=== PATIENT | male | born 1935 | race Caucasian/White ===

== ENCOUNTER 2024-11-23 01:49 | Inpatient (IN) | payer OTHER, MEDICARE ==
[~2024-11-23] VITALS: Ht 188 cm; Wt 77.7 kg
--- NOTE | 2024-11-23 03:48 | Physician Documentation ---
History of Present Illness Chief Complaint: See Chief Complaint Stated Complaint: ABDOMINAL PAIN Time Seen by MD: 03:47 Mode of Arrival: Air Transport HPI Patient presents to the emergency room as a transfer from [facility] for concerns for elevated liver enzymes with a suspected gallbladder pathology. Antibiotics administered. Patient's pain is beginning to return which started at 4:00 p.m. today. History of hiatal hernia and takes regular antacids. Denies chest pain. Formal ultrasound at sending facility was not available Review of Systems ROS All review of systems negative except as per HPI Physical Exam Vital Signs: Temperature: 98.3, Source: Oral, Heart Rate: 92, Respiratory Rate: 15, BP: 104/64, Pulse Oximetry: 94, Weight: 77.730 Oxygen Flow Rate: 0 Physical Exam General: Patient is awake, alert, oriented x4 in no acute distress Head: Normocephalic and atraumatic. Eyes: Conjunctival normal. EOMI. PERRL. ENT: Mucous membranes moist. Neck: Supple, trachea is midline. Chest: Clear to auscultation bilaterally without rales, rhonchi, or wheezes. There is no accessory muscle use or retractions. Cardiac: RRR without murmurs, gallops, or rubs. Abd: Soft, nondistended, positive right upper quadrant tenderness to palpation Progress Results/Orders Results/Orders Vital Signs 11/23/24 11/23/24 01:53 02:15 Temp 98.3 Pulse 92 Resp 15 B/P (MAP) 104/64 Pulse Ox 94 O2 Flow Rate 0 Medical Decision Making Findings Patient presented to the emergency room as a transfer from [facility] for concerns for elevated liver enzymes in the light of concern for cholecystitis. Differentials include but are not limited to cholecystitis, choledocholithiasis, transaminitis, pancreatitis. Ultrasound ordered and we will admit for further investigation Departure Admitted to Inpatient Unit: yes, to hospitalist Impression: Primary Impression: Suspected choledocholithiasis Condition: Guarded Referrals: NO PRIMARY CARE PROVIDER (PCP) Signature Scribe Signature: No scribe Attestation: The note accurately reflects work and decisions made by me.Nathan Castro MD 11/23/24 04:04 NATHAN CASTRO MD November 23, 2024 03:48
[2024-11-23] MEDS ORDERED: morphine 2 MG/ML inj. syringe IV PRN (05:15)
[2024-11-23] MEDS ORDERED: magnesium Cl slow-release 64mg tablet PO PRN (05:15)
[2024-11-23] MEDS ORDERED: magnesium sulf-water 2g/50mL 50 ML IV PRN (05:15)
[2024-11-23] MEDS ORDERED: ondansetron/PF 4mg/2ml inj IV PRN (05:15)
[2024-11-23] MEDS ORDERED: magnesium sulf-water 4G/100mL 100 ML IV PRN (05:15)
[2024-11-23] MEDS ORDERED: potassium Cl 40MEQ/1/2NS 520ml 520 ML IV PRN (05:15)
[2024-11-23] MEDS ORDERED: mag hydrox/Alum hydrox/simeth 30ml oral suspension PO PRN (05:15)
[2024-11-23] MEDS ORDERED: magnesium hydroxide 30ml (MOM) UD suspension PO PRN (05:15)
[2024-11-23] MEDS ORDERED: acetaminophen 325mg tablet PO PRN (05:15)
[2024-11-23] MEDS ORDERED: potassium Cl 20 mEq SR tablet PO PRN ×2 (05:15)
[2024-11-23] MEDS: morphine 4 MG/ML inj SYRINge IV ONE (05:51)
[2024-11-23] MEDS: normal saline 1000ml 1,000 ML IV SCH (05:52)
[2024-11-23 06:26] LABS: BILIRUBIN,URINE SMALL (Neg); CLARITY,URINE CLEAR (Clear); COLOR,URINE YELLOW (Yellow); GLUCOSE, URINE 500 mg/dl (Neg); KETONES,URINE TRACE mg/dl (Neg); LEUKOCYTE ESTERASE ,URINE NEGATIVE (Neg); NITRITES, URINE NEGATIVE (Neg); OCCULT BLOOD,URINE NEGATIVE (Neg); PH,URINE 5.5 (4.8-8.0); PROTEIN,URINE TRACE mg/dl (Neg)
[2024-11-23 06:27] LABS: UA COLLECTION TYPE CLN CATCH MIDSTREAM
[2024-11-23 06:32] LABS: WBC,URINE 0-4 /HPF (0-4)
[2024-11-23 06:33] LABS: BACTERIA,URINE FEW /HPF (Neg); FINE GRANULAR CAST 0-3 /LPF (NEGATIVE); RBC,URINE NONE SEEN /HPF (0-2); SQUAMOUS EPITHELIAL CELL,UR NONE SEEN /LPF (FEW)
--- NOTE | 2024-11-23 06:47 | HISTORY AND PHYSICAL-Residence ---
History & Physical Providers to CC Resident Creating Document: MAY LUNA RES ~ History of Present Illness Reason for Admit\Complaint: Symptomatic cholelithiasis History of Present Illness The 89-year-old male with a history of arrhythmias, hypertension, hyperlipidemi a, renal stones-s/p lithotripsy, lung cancer-s/p chemotherapy was transferred from an outside hospital [facility] for higher level of care. He complained of abdominal pain that started 1-2 hours after he had his lunch yesterday. He has lunch was hamburger and fries. The abdominal pain was dull achy and started in the epigastric region and eventually radiated to the back. [place] nauseous but denies any vomiting, constipation or diarrhea. Denies any chest pain, palpitations, shortness of breath, dizziness, dysuria or any other complaints. States that he has dark stools due to oral iron supplementation. Denies any history of gallstones, PUD. Is on Eliquis but denies being diagnosed with in AFib or a flutter. States that he had arrhythmias in the past and so Dr. Loyd placed him on Eliquis. Lab work at the outside hospital WBC 13.7, hemoglobin 13.9, BUN 30, creatinine 1.4, total bilirubin 2, alkaline phosphatase 312, AST 153, ALT 81. 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 Abdominal ultrasound not done at the outside hospital. Takes Tylenol 500 mg p.o. daily. Past Medical History Past Medical History History of arrhythmias, hypertension, hyperlipidemia, renal stones-s/p lithotripsy, lung cancer-s/p chemotherapy Past Surgical History Surgical History Comment Lithotripsy for renal stones, coronary artery stenting about 10-15 years back, umbilical hernia repair Past Social History Social History Comment Quit smoking about 40 years back and smoked for about four years before that. Occasionally drinks alcohol. Denied abusing any other recreational drugs ROS ROS Constitutional: No fever, chills, dizziness, weakness, weight gain or loss Eyes: No pain, erythema, discharge, blurring of vision ENT: No sore throat, epistaxis, tinnitus Cardiovascular: No chest pain, chest pressure, chest discomfort, palpitations, syncope, lower extremity edema, paroxysmal nocturnal dyspnea Respiratory: No shortness of breath, cough, hemoptysis Gastrointestinal: Abdominal pain present. Normal appetite. No nausea, vomiting, diarrhea, constipation, hematemesis, bloating, melena or fresh blood Genitourinary: No frequency, urgency, nocturia, hematuria or dysuria Musculoskeletal: No arthralgias or myalgias Integumentary: No change in skin, hair, nails. No swelling, bruising, abrasions Neurologic: No headache, neck pain, numbness or tingling of the extremities, weakness Psychiatric: No delusions, depression, loss of interest in normal activity or change in sleep pattern, hallucinations, suicidal ideations Endocrine: No fatigue, weakness, polydipsia, polyuria, change in appetite, heat or cold intolerance, sweating, dry skin Hematological: No bleeding, petechiae, bruising Allergies: No asthma or urticaria Exam Vitals: Vital Signs Date Time Temp Pulse Resp B/P (MAP) Pulse Ox O2 Delivery O2 Flow Rate FiO2 11/23/24 06:14 74 18 106/74 (85) 98 0 11/23/24 01:53 98.3 General: Alert and oriented x4 HEENT: Normocephalic and atraumatic. Pupils equal round reactive to light and accommodation. Extraocular movements intact. Oral and nasal mucosa moist Neck: Trachea is in midline. No masses or JVD Chest: Bilateral normal breath sounds. No crackles, rhonchi or wheezes Cardiovascular: Irregular rhythm. Controlled rate S1-S2 normal. No rubs or murmurs Abdomen: Soft and nondistended. Tenderness in the epigastric and right upper quadrant region. Monreal's sign positive. Normoactive bowel sounds Extremities: No cyanosis, clubbing or edema Central Nervous System: No gross sensory or motor deficits. CN II to XII intact Skin: Warm and dry Advance Care Planning Advanced Care plannin - 30 Minutes Additional Plan Possible acute cholecystitis/symptomatic cholelithiasis/choledocholithiasis Pending labs here in [facility] Lab work at the outside hospital WBC 13.7, hemoglobin 13.9, total bilirubin 2, alkaline phosphatase 312, AST 153, ALT 81 Abdomen/pelvis CT done at the outside hospital showed large left hiatus hernia, distended gallbladder, no bile duct dilation, 6.5 mm nonobstructing right kidney stone, bilateral benign-appearing renal cysts, 3.7 cm infrarenal abdominal aor tic aneurysm, diverticulosis, large left inguinal hernia Pending abdominal ultrasound Started Rocephin 2 g IV daily Consult surgeon in the a.m. For CBD dilation in the abdominal ultrasound. Recommend to consider MRCP if dil ated CBD Morphine for pain Atrial fibrillation History of PCI Feels like an irregular rhythm EKG ordered Hold home medication Eliquis due to possible surgery Continue rate-controlling medication after med reconciliation Hypertension Soft blood pressures now Continue home medication after med med reconciliation as tolerated History of lung cancer-s/p chemotherapy Takes Tarceva 25 mg once daily at home She quit pharmacy for availability. Else, as patient's family to bring the medication Hyperlipidemia Lipid panel ordered Hold Lipitor in view of transaminitis DVT prophylaxis: Lovenox 40 mg subcutaneous daily. Start Eliquis 24-48 hours after surgery Diet: NPO due to possible surgery in a.m. May Luna MD Internal Medicine Resident, PGY 2 Plan reviewed with bedside team. Patient seen through remote audiovisual assessment through HIPAA compliant setup. All labs, flowsheets, and images reviewed Cumulative nonprocedural care time spent in directed patient care = 30 min Date of Service: November 23, 2024 Billing Provider: JOSE JUAN WEINBERG MD, MANOJNA RES November 23, 2024 06:47 JOSE JUAN WEINBERG MD November 23, 2024 07:16
--- NOTE | 2024-11-23 07:00 | ELECTROCARDIOGRAPH REPORT ---
[facility] Test Date: 2024-11-23 Test Time: 06:58:37 Pat Name: ALEJANDRO FISHER Department: [facility]-ER Patient ID: [facility]-[id number] Room: [place] [address] Gender: M Legal Billing Clerk: : 1935 Requested By: MAY LUNA Order Number: [id number] Reading MD: Dr. Austin Crow Measurements Intervals [place] Rate: 63 P: 0 WV: 0 QRS: 13 QRSD: 117 T: 18 QT: 443 QTc: 454 Interpretive Statements Atrial fibrillation Ventricular premature complex Incomplete right bundle branch block Low voltage, precordial leads Electronically Signed On 11-29-2024 21:45:[address] Austin Crow Please click the below link to view image of tracing.
[2024-11-23] MEDS ORDERED: ATOR10TA70 PO (07:06)
[2024-11-23] MEDS ORDERED: LISI20TA28 PO (07:06)
[2024-11-23] MEDS ORDERED: ERLO100T (07:06)
[2024-11-23] MEDS ORDERED: APIX5TAB3 PO (07:06)
[2024-11-23] MEDS ORDERED: METO-411 PO (07:06)
[2024-11-23] MEDS ORDERED: OMEP20CA16 PO (07:06)
[2024-11-23] MEDS ORDERED: TIZA4TAB11 PO (07:06)
[2024-11-23] MEDS ORDERED: CHLO25TA10 PO (07:07)
[2024-11-23 07:26] LABS: BASOPHILS % (AUTO) 0.2 % (0-1); EOSINOPHILS % (AUTO) 0 % (0-6); HEMATOCRIT 36.9 % (42.0-52.0); HEMOGLOBIN 11.9 g/dl (14.0-17.9); LYMPHOCYTES # (AUTO) 0.3 X10'3 (1.1-4.8); LYMPHOCYTES % (AUTO) 1.4 % (21-51); MEAN CORPUSCULAR HEMOGLOBIN 30.2 PG (27.0-31.0); MEAN CORPUSCULAR HGB CONC 32.3 g/dL (33.0-36.5); MEAN CORPUSCULAR VOLUME 93.5 FL (78-98); MEAN PLATELET VOLUME 8.3 FL (7.4-10.4); MONOCYTES # (AUTO) 1.3 X10'3 (0-0.9); MONOCYTES % (AUTO) 6.5 % (2-12); NEUTROPHILS # (AUTO) 18.3 X10'3 (1.8-7.7); NEUTROPHILS % (AUTO) 91.9 % (42-75); PLATELET COUNT 167 X10'3 (140-440); RED BLOOD COUNT 3.95 X10'6 (4.70-6.10); RED CELL DISTRIBUTION WIDTH 17.6 % (11.5-14.5); WHITE BLOOD COUNT 19.9 X10'3 (4.5-11.0)
[2024-11-23 07:40] LABS: APTT 32 SECONDS (22-32); INR 1.2 INR
[2024-11-23 07:47] LABS: ALANINE AMINOTRANSFERASE 491 U/L (12-78); ALBUMIN 3.1 G/DL (3.4-5.0); ALBUMIN/GLOBULIN RATIO 1.3 (1.1-1.5); ALKALINE PHOSPHATASE 315 IU/L (46-116); ANION GAP 7 (8-16); ASPARTATE AMINO TRANSFERASE 542 U/L (10-37); BLOOD UREA NITROGEN 30 MG/DL (7-18); BUN/CREATININE RATIO 17.1 (10.0-20.0); CALCIUM 8.4 MG/DL (8.5-10.1); CHLORIDE 109 MMOL/L (99-107); CREATININE 1.75 MG/DL (0.60-1.10); GLUCOSE 142 MG/DL (70-104); SODIUM 144 MMOL/L (135-145); TOTAL CARBON DIOXIDE 28.4 MMOL/L (24-32); TOTAL PROTEIN 5.5 G/DL (6.4-8.2); eCRCL 32 ML/MIN; eGFR 37 ML/MIN
[2024-11-23 07:49] LABS: PROTHROMBIN TIME 11.9 SECONDS (9.0-12.0)
[2024-11-23] MEDS: CefTRIAXone 2gm/D5W 50ml BAG 50 ML IV SCH (07:49)
[2024-11-23 07:52] LABS: HEMOGLOBIN A1C 5.6 % (4.5-6.2)
[2024-11-23 07:55] LABS: LIPASE 53 U/L (16-77); MAGNESIUM 2.1 MG/DL (1.5-2.4); PHOSPHORUS 3.6 MG/DL (2.3-4.5); PRO BRAIN NATRIURETIC PEPTIDE 4534 PG/ML (0-450)
[2024-11-23 07:58] LABS: BILIRUBIN,TOTAL 3.5 MG/DL (0.1-1.0)
[2024-11-23] MEDS: K and/or MAG REPLACEMENT MC SCH (08:00)
[2024-11-23] MEDS: morphine 2 MG/ML inj. syringe IV PRN (10:10)
--- NOTE | 2024-11-23 11:08 | RADIOLOGY REPORT ---
Technique: Real-time ultrasound imaging of the abdomen was performed with grayscale and color Doppler . Indication: CBD dilation Comparison: None Findings: Liver measures 14.1 cm. It is unremarkable in echogenicity and echotexture without focal mass. Tom l vein is normal in caliber and demonstrates normal hepatopetal flow. Gallbladder demonstrates abnormal wall thickening up to 8 mm. Pericholecystic edema. No identifiable cholelithiasis. The common bile duct measures 6 mm. No intrahepatic biliary ductal dilatation. The right kidney measures 12th cm. There is no hydronephrosis or sonographic evidence of nephrolithia sis. Right renal lower pole cystm measures 2.5 cm The visualized portion of the pancreas is unremarkable. The visualized portion of the IVC is unremarkable. Impression: 1. Abnormal thickening of the gallbladder wall with pericholecystic edema. Findings concerning for c holecystitis. Recommend HIDA scan. 2. Common bile duct diameter at 6 mm, upper limits of normal.
[2024-11-23 11:25] VITALS: BP 124/47; PULSE 69; RESP 16; TEMP 97.4; O2SAT 98
[2024-11-23 18:00] VITALS: BP 127/56; PULSE 77; RESP 18; TEMP 97.4; O2SAT 93
[2024-11-23] MEDS: enoxaparin 40mg/0.4ml syringe SQ SCH (20:26)
[2024-11-23 22:00] VITALS: BP 107/48; PULSE 74; RESP 16; TEMP 98; O2SAT 96
[2024-11-24] MEDS: piperacillin/tazo 4.5gm/100ml 100 ML IV SCH (00:02)
--- NOTE | 2024-11-24 05:31 | ELECTROCARDIOGRAPH REPORT ---
[facility] Test Date: 2024-11-24 Test Time: 03:43:03 Pat Name: ALEJANDRO FISHER Department: ORTHO/NEURO Room: ORTHO [facility] B Gender: M Lithograph Operator: : 1935 Requested By: CHAVA BACA Order Number: [id number] Reading MD: Dr. SEFERINO Garcia Measurements Intervals [place] Rate: 85 P: 0 MS: 0 QRS: -38 QRSD: 104 T: 76 QT: 370 QTc: 440 Interpretive Statements Atrial fibrillation Left axis deviation Low voltage, precordial leads Abnormal R-wave progression, late transition Nonspecific T abnormalities, lateral leads Electronically Signed On 11-25-2024 15:06:[address] SEFERINO Garcia Please click the below link to view image of tracing.
[2024-11-24 06:00] VITALS: BP 125/65; PULSE 72; RESP 16; TEMP 97.7; O2SAT 96
[2024-11-24 06:52] LABS: BASOPHILS % (AUTO) 0.3 % (0-1); EOSINOPHILS # (AUTO) 0.1 X10'3 (0-0.9); HEMATOCRIT 37.4 % (42.0-52.0); HEMOGLOBIN 12.2 g/dl (14.0-17.9); LYMPHOCYTES # (AUTO) 0.4 X10'3 (1.1-4.8); LYMPHOCYTES % (AUTO) 5.8 % (21-51); MEAN CORPUSCULAR HEMOGLOBIN 30.3 PG (27.0-31.0); MEAN CORPUSCULAR HGB CONC 32.5 g/dL (33.0-36.5); MEAN CORPUSCULAR VOLUME 93.1 FL (78-98); MEAN PLATELET VOLUME 8.8 FL (7.4-10.4); MONOCYTES # (AUTO) 0.9 X10'3 (0-0.9); MONOCYTES % (AUTO) 11.5 % (2-12); NEUTROPHILS # (AUTO) 6.2 X10'3 (1.8-7.7); NEUTROPHILS % (AUTO) 81.4 % (42-75); PLATELET COUNT 137 X10'3 (140-440); RED BLOOD COUNT 4.01 X10'6 (4.70-6.10); RED CELL DISTRIBUTION WIDTH 18.5 % (11.5-14.5); WHITE BLOOD COUNT 7.7 X10'3 (4.5-11.0)
[2024-11-24 07:03] LABS: APTT 39 SECONDS (22-32); INR 1.3 INR; PROTHROMBIN TIME 13.1 SECONDS (9.0-12.0)
[2024-11-24 07:16] LABS: ALANINE AMINOTRANSFERASE 326 U/L (12-78); ALBUMIN 2.7 G/DL (3.4-5.0); ALBUMIN/GLOBULIN RATIO 1.1 (1.1-1.5); ALKALINE PHOSPHATASE 255 IU/L (46-116); ANION GAP 8 (8-16); ASPARTATE AMINO TRANSFERASE 198 U/L (10-37); BILIRUBIN,TOTAL 3.6 MG/DL (0.1-1.0); BLOOD UREA NITROGEN 28 MG/DL (7-18); BUN/CREATININE RATIO 18.8 (10.0-20.0); CALCIUM 8.4 MG/DL (8.5-10.1); CHLORIDE 107 MMOL/L (99-107); CHOL/HDL RATIO 2.2 (0.00-4.99); CHOLESTEROL 74 MG/DL (0-200); CREATININE 1.49 MG/DL (0.60-1.10); GLUCOSE 95 MG/DL (70-104); HDL CHOLESTEROL 33 MG/DL (35-60); LDL CHOLESTEROL 25 MG/DL (50-100); MAGNESIUM 2.2 MG/DL (1.5-2.4); PHOSPHORUS 3.1 MG/DL (2.3-4.5); POTASSIUM 4.9 MMOL/L (3.5-5.1); SODIUM 141 MMOL/L (135-145); TOTAL CARBON DIOXIDE 26.5 MMOL/L (24-32); TOTAL PROTEIN 5.1 G/DL (6.4-8.2); TRIGLYCERIDES 49 MG/DL (20-135); eCRCL 38 ML/MIN; eGFR 45 ML/MIN
[2024-11-24 10:00] VITALS: BP 132/70; PULSE 84; RESP 16; TEMP 98.2; O2SAT 96
--- NOTE | 2024-11-24 13:39 | RADIOLOGY REPORT ---
PROCEDURE: MR MRCP Indication: abd pain COMPARISON: 11/22/2024 TECHNIQUE: Multiplanar multisequence images of the brain are obtained. FINDINGS: Examination degraded by motion. Gallbladder distention. Pericholecystic edema. The common bile duct is notm well characterized. CBD measures approximately 7 mm distally. There is a large hiatal hernia which contains the entirety of the stomach and a portion of the pancre as. No hydronephrosis. Bilateral renal cysts. Mesenteric edema. Aneurysmal dilatation of the abdominal aorta up to 3.8 cm. There are small l pleural effusions. S shaped curvature thoracolumbar spine. IMPRESSION: Limited examination, severely degraded by motion. Hydropic /distended gallbladder with pericholecystic edema, again concerning for cholecystitis. Recom mend HIDA scan. Large hiatal hernia with intrathoracic stomach. A portion of the pancreas also is within the mediasti num. Mesenteric edema. Aneurysmal dilatation of the abdominal aorta to 3.8 cm. Recommend vascular surgery consultation for further management. Bilateral pleural effusions.
[2024-11-24] MEDS ORDERED: ERLO25TA PO (15:48)
[2024-11-24] MEDS ORDERED: TIZA4TAB11 PO (15:56)
[2024-11-24 18:00] VITALS: BP 131/72; PULSE 91; RESP 15; TEMP 98.2; O2SAT 93
--- NOTE | 2024-11-24 19:19 | PROGRESS NOTE ---
Daily Progress Note Providers to CC ~ Antibiotic Timeout Antibiotic Ordered?: Yes Subjective Patient denies any abdominal pain nausea or vomiting; has been NPO Objective Vital Signs Date Time Temp Pulse Resp B/P (MAP) Pulse Ox O2 Delivery O2 Flow Rate FiO2 11/24/24 10:00 98.2 84 16 132/70 (90) 96 Room Air 11/23/24 10:59 2.0 Result Diagram: 11/24/24 0610 11/24/24 0610 In bed in nonacute distress HEENT normal oral mucosa no JVD Lungs with decreased bilateral entry no crackles no wheezing Normal rate and rhythm S1-S2 Abdomen is soft nontender bowel sounds are present Extremities No edema plus two pulses Awake and alert Coagulation Studies Laboratory Tests Test 11/24/24 06:10 Prothrombin Time 13.1 SECONDS (9.0-12.0) H INR International Normalized Ratio 1.3 INR Activated Partial Thromboplast Time 39 SECONDS (22-32) H Coagulation Comments Problem\Assessment\Plan Patient presented with acute onset of abdominal pain nausea and vomiting; he is admitted for acute cholecystitis and concern for possible choledocholithiasis; patient is on Zosyn; MRCP done today shows no evidence of choledocholithiasis; case was discussed with surgery who will evaluate the patient; IV fluids; pain management Bilateral pleural effusions possibly related to chronic heart failure Heart failure likely chronic; check echo Large hiatal hernia Acute kidney injury on presentation likely related to dehydration; IV fluids History of high blood pressure metoprolol lisinopril Date of Service: November 24, 2024 Billing Provider: CHAVA BACA MD Common Visit Codes: [id number] INP/OBS CARE(HIGH) CHAVA BACA MD November 24, 2024 19:19
[2024-11-24] MEDS ORDERED: tizanidine 4mg tablet PO PRN (19:20)
[2024-11-24] MEDS: lisinopril 20mg tablet PO SCH (19:51)
[2024-11-24] MEDS: TARCEVA PO SCH (20:50)
[2024-11-24] MEDS: Melatonin 3mg tablet PO ONE (21:40)
[2024-11-24 22:00] VITALS: BP 139/75; PULSE 84; RESP 18; TEMP 96.7; O2SAT 94
[2024-11-25 05:52] LABS: BASOPHILS % (AUTO) 0.5 % (0-1); EOSINOPHILS # (AUTO) 0.1 X10'3 (0-0.9); HEMOGLOBIN 12.1 g/dl (14.0-17.9); LYMPHOCYTES # (AUTO) 0.4 X10'3 (1.1-4.8); LYMPHOCYTES % (AUTO) 6.4 % (21-51); MEAN CORPUSCULAR HEMOGLOBIN 30.6 PG (27.0-31.0); MEAN CORPUSCULAR HGB CONC 32.7 g/dL (33.0-36.5); MEAN CORPUSCULAR VOLUME 93.6 FL (78-98); MEAN PLATELET VOLUME 8.8 FL (7.4-10.4); MONOCYTES # (AUTO) 0.7 X10'3 (0-0.9); MONOCYTES % (AUTO) 10.7 % (2-12); NEUTROPHILS % (AUTO) 80.4 % (42-75); PLATELET COUNT 128 X10'3 (140-440); RED BLOOD COUNT 3.96 X10'6 (4.70-6.10); RED CELL DISTRIBUTION WIDTH 17.7 % (11.5-14.5); WHITE BLOOD COUNT 6.2 X10'3 (4.5-11.0)
[2024-11-25 06:05] LABS: APTT 38 SECONDS (22-32); INR 1.2 INR; PROTHROMBIN TIME 12.5 SECONDS (9.0-12.0)
[2024-11-25 06:18] LABS: ALANINE AMINOTRANSFERASE 210 U/L (12-78); ALBUMIN 2.5 G/DL (3.4-5.0); ALKALINE PHOSPHATASE 243 IU/L (46-116); ANION GAP 9 (8-16); ASPARTATE AMINO TRANSFERASE 93 U/L (10-37); BILIRUBIN,TOTAL 2.3 MG/DL (0.1-1.0); BLOOD UREA NITROGEN 27 MG/DL (7-18); BUN/CREATININE RATIO 18.6 (10.0-20.0); CALCIUM 8.4 MG/DL (8.5-10.1); CHLORIDE 110 MMOL/L (99-107); CREATININE 1.45 MG/DL (0.60-1.10); GLUCOSE 64 MG/DL (70-104); MAGNESIUM 2.1 MG/DL (1.5-2.4); POTASSIUM 4.9 MMOL/L (3.5-5.1); SODIUM 143 MMOL/L (135-145); TOTAL CARBON DIOXIDE 24.3 MMOL/L (24-32); eCRCL 39 ML/MIN; eGFR 46 ML/MIN
[2024-11-25 06:45] VITALS: BP 131/67; PULSE 82; RESP 17; TEMP 97.3; O2SAT 95
[2024-11-25 08:00] VITALS: RESP 17; O2SAT 95
[2024-11-25] MEDS: atorvastatin 10mg tablet PO SCH (08:02)
[2024-11-25] MEDS: pantoprazole 40mg Tablet.DR PO SCH (08:03)
[2024-11-25] MEDS: chlorthalidone 25mg tablet PO SCH (08:04)
[2024-11-25] MEDS: metoprolol succinate 25mg (24-HOUR) SR. Tablet PO SCH (08:06)
[2024-11-25 10:00] VITALS: BP 125/66; PULSE 73; RESP 16; TEMP 97.4; O2SAT 94
--- NOTE | 2024-11-25 12:50 | RADIOLOGY REPORT ---
EXAM: CT Abdomen and Pelvis Without Intravenous Contrast CLINICAL INDICATION: pain TECHNIQUE: Axial computed tomography images of the abdomen and pelvis without intravenous contrast. This CT exam was performed using one or more of the following dose reduction techniques: automated exposure control, adjustment of the mA and/or kV according to patient size, and/or use of iterative r econstruction technique. CONTRAST: COMPARISON: ROUTINE ABPEL WITH(ADULT) on DOS: 11/22/24 FINDINGS: LUNG BASES: See below. PLEURAL SPACE: Bilateral pleural effusion with compressive atelectasis. MEDIASTINUM: Large esophageal hiatal hernia. ABDOMEN: LIVER: Fatty infiltration of the liver. GALLBLADDER AND BILE DUCTS: Unremarkable. No calcified stones. No ductal dilation. PANCREAS: Unremarkable. No ductal dilation. SPLEEN: Unremarkable. No splenomegaly. ADRENALS: Unremarkable. No mass. KIDNEYS AND URETERS: Right nephrolithiasis without hydronephrosis. Bilateral renal cysts. STOMACH AND BOWEL: Constipation with suggestion of fecal impaction of the rectum. Colonic divertic ulosis without acute diverticulitis. No obstruction. PELVIS: APPENDIX: No findings to suggest acute appendicitis. BLADDER: Unremarkable. No stones. REPRODUCTIVE: Unremarkable as visualized. ABDOMEN and PELVIS: INTRAPERITONEAL SPACE: Unremarkable. No free air. No significant fluid collection. BONES/JOINTS: Total right hip replacement. No acute fracture. No dislocation. SOFT TISSUES: Inguinal hernias, bilaterally, greater on the left. VASCULATURE: Scattered calcified atherosclerotic disease of aorta. No abdominal aortic aneurysm. LYMPH NODES: Unremarkable. No enlarged lymph nodes. OTHER FINDINGS: . . IMPRESSION: 1. Constipation with suggestion of fecal impaction of the rectum. 2. Large esophageal hiatal hernia. 3. Right nephrolithiasis without hydronephrosis. 4. Inguinal hernias, bilaterally, greater on the left. 5. Bilateral renal cysts. 6. Colonic diverticulosis without acute diverticulitis.
[2024-11-25] MEDS: ringers solution, lacted 1,000 ML IV SCH (13:05)
[2024-11-25] MEDS ORDERED: morphine 4 MG/ML inj SYRINge IV PRN (13:05)
[2024-11-25] MEDS ORDERED: meperidine/PF 25mg/ml syringe IV PRN ×3 (13:05)
[2024-11-25] MEDS ORDERED: enalaprilat 1.25mg/ml 2ml vial IV PRN (13:05)
[2024-11-25] MEDS ORDERED: proCHLORperazine 10 MG/2 ml inj IV PRN (13:05)
[2024-11-25] MEDS ORDERED: ondansetron/PF 4mg/2ml inj IV PRN (13:05)
--- NOTE | 2024-11-25 13:21 | ELECTROCARDIOGRAPH REPORT ---
[facility] Test Date: 2024-11-25 Test Time: 13:16:26 Pat Name: ALEJANDRO FISHER Department: [facility] 4S Patient ID: [facility]-[id number] Room: ORTHO [facility] B Gender: M Medical Or Surgical Instrument Maker: Arianna [place] : 1935 Requested By: CARMEN WELSH Order Number: [id number] Reading MD: Dr. SEFERINO Garcia Measurements Intervals [place] Rate: 81 P: 0 OR: 0 QRS: -50 QRSD: 96 T: 88 QT: 600 QTc: 697 Interpretive Statements Atrial fibrillation Left anterior fascicular block Probable anterior infarct, age indeterminate Prolonged QT interval Electronically Signed On 11-25-2024 15:06:[address] SEFERINO Garcia Please click the below link to view image of tracing.
[2024-11-25] MEDS ORDERED: BUPIVAcaine 2.5mg/ml inj 50ml vial (contains preservative) ONE (14:24)
--- NOTE | 2024-11-25 17:48 | PROGRESS NOTE ---
Daily Progress Note Providers to CC ~ Antibiotic Timeout Antibiotic Ordered?: Yes Subjective No abdominal pain nausea or vomiting Objective Vital Signs Date Time Temp Pulse Resp B/P (MAP) Pulse Ox O2 Delivery O2 Flow Rate FiO2 11/25/24 14:30 Room Air 2.0 11/25/24 10:00 97.4 73 16 125/66 (85) 94 Result Diagram: 11/25/24 0519 11/25/24 0519 In bed in nonacute distress HEENT normal oral mucosa no JVD Lungs with decreased bilateral entry no crackles no wheezing Normal rate and rhythm S1-S2 Abdomen is soft nontender bowel sounds are present Extremities No edema plus two pulses Awake and alert Coagulation Studies Laboratory Tests Test 11/25/24 05:19 Prothrombin Time 12.5 SECONDS (9.0-12.0) H INR International Normalized Ratio 1.2 INR Activated Partial Thromboplast Time 38 SECONDS (22-32) H Coagulation Comments Problem\Assessment\Plan Patient presented with acute onset of abdominal pain nausea and vomiting; he is admitted for acute cholecystitis and concern for possible choledocholithiasis; patient is on Zosyn; MRCP shows no evidence of choledocholithiasis; case was discussed with surgery who will evaluate the patient; IV fluids; pain management 11/25 awaiting surgery evaluation Bilateral pleural effusions possibly related to chronic heart failure Heart failure likely chronic; check echo Large hiatal hernia Acute kidney injury on presentation likely related to dehydration; IV fluids History of high blood pressure metoprolol lisinopril Discharge disposition likely home Date of Service: November 25, 2024 Billing Provider: CHAVA BACA MD Common Visit Codes: [id number] INP/OBS CARE(HIGH) CHAVA BACA MD November 25, 2024 17:48
[2024-11-25 18:04] VITALS: BP 144/69; PULSE 74; RESP 18; TEMP 98.6; O2SAT 97
--- NOTE | 2024-11-25 19:11 | PROGRESS NOTE ---
Progress Note ID Providers to CC ~ Progress Note Progress Note: pt seen-don in am RIMMA HANCOCK MD November 25, 2024 19:11
[2024-11-25] MEDS: diatr meglu/diatrizoate 30ml oral sol.-(3 dose) bottle PO SCH (21:00)
--- NOTE | 2024-11-25 21:52 | RADIOLOGY REPORT ---
Clinical History hiatal hernia Comparison None Technique: All CT scans at this medical facility are performed using dose modulation techniques as appropriate t o a performed exam including the following: Automated exposure control was utilized; adjustment of th e mA and/or kV according to patient size; and use of iterative reconstruction technique. All CT studies are reported to the Dose Index Registry of the [place] [employer] [employer]. Without Contrast Radiation Dose: CTDI (mGy): 16.33; DLP (mGy-cm): 681.28 ALEJANDRO FISHER, [id number] TECHNIQUE: Volumetric CT acquisition of the chest was obtained from the thoracic inlet to the upper a bdomen. Coronal and sagittal reconstructed images are provided. FINDINGS: LUNGS/AIRWAYS/PLEURA: Central airways are patent. There is small bilateral effusions with adjacent a telectasis. There is scarring left lung base and upper lobe. No focal airspace consolidation. HEART/VESSELS: No pericardial effusion. Heart is normal in size. Normal course and caliber of the aor ta. LYMPH NODES/MEDIASTINUM: No evidence of thoracic adenopathy. Visualized thyroid gland is unremarkable . Esophagus is unremarkable. UPPER ABDOMEN: There is moderate to large paraesophageal hernia. The pancreatic body and tail is par tially herniated above the diaphragm. Left renal cysts. OSSEOUS STRUCTURES/SOFT TISSUES: No acute or aggressive osseous lesions. Degenerative changes of the thoracic spine. IMPRESSION: Small bilateral effusions with adjacent atelectasis. 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 The pancreatic body and tail is partially herniated above t he diaphragm. This report was electronically signed by Archie Dugan MD on 11/25/2024 9:50:08 PM.
[2024-11-25 22:00] VITALS: BP 140/75; PULSE 74; RESP 12; TEMP 98; O2SAT 96
--- NOTE | 2024-11-25 23:32 | CARDIOLOGY REPORT ---
APPROVED REPORT EXAM: Comprehensive 2D, Doppler, and color-flow Echocardiogram. Patient Location: [facility]3 B Blood Pressure: 125/66 mmHg Heart Rate: 72-84 bpm Rhythm: Atrial Fibrillation Indications Pre-Op Assessment LV Function Abdominal Pain Hiatal Hernia Inguinal Hernia Hx of CAD Hx of ME Hx of Lung Cancer S/P Chemotherapy Hx of Renal Stones Orchestra Conductor: Herbert Loyd MD Previous echo: None available, recent office Echo at Dr. Loyd's (last 3 weeks per patient) 2D Dimensions RVDd 4.4 cm LA Diam5.0 cm RA Minor5.8 cmLVOT Diameter 2.26 (1.8-2.4cm) IVC 27.45 mmCO 3.2 L/min M-Mode Dimensions RVDd 4.71 (2.1-3.2cm) Left Atrium(MM) 5.72 (2.5-4.0cm) IVSd 1.15 (0.7-1.1cm) LVDd 4.13 (4.0-5.6cm) Aortic Root 3.46 (2.2-3.7cm) PWd 1.15 (0.7-1.1cm) Aortic Cusp Exc 2.02 (1.5-2.0cm) IVSs 1.29 cm LVDs 2.84 (2.0-3.8cm) FS (%) 33 % PWs 1.55 cm ESV(Teich) 28.4 ml LVEF(%) 61 (>50%) Aortic Valve AoV Peak Michael. 121.6 cm/s AoV VTI 22.0 cm AO Peak GR. 5.9 mmHg AO Mean GR. 3 mmHg LVOT VTI 18.25 cm LVOT Peak Michael. 92.1 cm/s PITA(VTI)/BSA 3.32 cm2/m2 PITA (VTI) 3.32 cm2 AI P 1/2 Time 452 ms Mitral Valve MV E Velocity 466.9 cm/s MV Peak Gr. 3 mmHg MV DECEL TIME 176 ms MV A Velocity 50.2 cm/s MV Mean Gr. 1 mmHg E/A Ratio 9.3 MV VMax89.9 cm/sMV VMean41.9 cm/s MVA VTI3.96 cm2MV VTI18.4 cm Tricuspid Valve TR P. Velocity 395 cm/s RAP ESTIMATE 10 mmHg TR Peak Gr. 62 mmHg RVSP 72 mmHg LEFT VENTRICLE Normal LV size and wall thickness. Mid anteroseptal and basal inferoseptal segments appear hypokineti c. Overall systolic function is normal. Overall LVEF is 55-60%. RIGHT VENTRICLE Right ventricle is moderate to severely dilated. Reduced function. RV apex appears akinetic. Estimate d PA systolic pressure is 72 mmHg. ATRIA Severe biatrial enlargement. AORTIC VALVE Trileaflet AV appears sclerotic without stenosis with mild to moderate insufficiency. MITRAL VALVE Mild MV annular calcification and annular thickening. No stenosis. Moderate regurgitation. TRICUSPID VALVE TV appears structurally normal with moderate to severe regurgitation. Elevated right heart pressures as noted above. PULMONIC VALVE Pulmonic valve was not visualized. GREAT VESSELS The aortic root is normal in size. IVC is dilated and collapses less than 50% with inspiration. PERICARDIUM Normal pericardium. No pericardial effusion seen. Other Information Study Quality: Adequate Conclusion Normal LV size and wall thickness. Mid anteroseptal and basal inferoseptal segments appear hypokineti c. Overall systolic function is normal. Overall LVEF is 55-60%. Right ventricle is moderate to severely dilated. Reduced function. RV apex appears akinetic. Estimate d PA systolic pressure is 72 mmHg. Severe biatrial enlargement. Trileaflet AV appears sclerotic without stenosis with mild to moderate insufficiency. Mild MV annular calcification and annular thickening. No stenosis. Moderate regurgitation. TV appears structurally normal with moderate to severe regurgitation. Elevated right heart pressures as noted above. Normal pericardium. No pericardial effusion seen.
[2024-11-26] VITALS (25 sets, daily range): BP systolic 102–177; BP diastolic 52–99; PULSE 76–119; RESP 12–25; TEMP 96.7–98.3; O2SAT 92–100
[2024-11-26 06:27] LABS: BASOPHILS % (AUTO) 0.4 % (0-1); EOSINOPHILS # (AUTO) 0.1 X10'3 (0-0.9); EOSINOPHILS % (AUTO) 1.7 % (0-6); HEMATOCRIT 38.8 % (42.0-52.0); HEMOGLOBIN 12.6 g/dl (14.0-17.9); LYMPHOCYTES # (AUTO) 0.4 X10'3 (1.1-4.8); LYMPHOCYTES % (AUTO) 5.8 % (21-51); MEAN CORPUSCULAR HEMOGLOBIN 30.2 PG (27.0-31.0); MEAN CORPUSCULAR HGB CONC 32.4 g/dL (33.0-36.5); MEAN CORPUSCULAR VOLUME 93.1 FL (78-98); MEAN PLATELET VOLUME 9.2 FL (7.4-10.4); MONOCYTES # (AUTO) 0.7 X10'3 (0-0.9); MONOCYTES % (AUTO) 10.8 % (2-12); NEUTROPHILS # (AUTO) 5.4 X10'3 (1.8-7.7); NEUTROPHILS % (AUTO) 81.3 % (42-75); PLATELET COUNT 153 X10'3 (140-440); RED BLOOD COUNT 4.17 X10'6 (4.70-6.10); RED CELL DISTRIBUTION WIDTH 17.8 % (11.5-14.5); WHITE BLOOD COUNT 6.6 X10'3 (4.5-11.0)
[2024-11-26 06:42] LABS: APTT 38 SECONDS (22-32); INR 1.2 INR; PROTHROMBIN TIME 12.1 SECONDS (9.0-12.0)
[2024-11-26 06:57] LABS: ALANINE AMINOTRANSFERASE 162 U/L (12-78); ALBUMIN 2.7 G/DL (3.4-5.0); ALBUMIN/GLOBULIN RATIO 1.1 (1.1-1.5); ALKALINE PHOSPHATASE 245 IU/L (46-116); ANION GAP 8 (8-16); ASPARTATE AMINO TRANSFERASE 55 U/L (10-37); BILIRUBIN,TOTAL 1.7 MG/DL (0.1-1.0); BLOOD UREA NITROGEN 26 MG/DL (7-18); CALCIUM 8.6 MG/DL (8.5-10.1); CHLORIDE 110 MMOL/L (99-107); CREATININE 1.37 MG/DL (0.60-1.10); GLUCOSE 82 MG/DL (70-104); MAGNESIUM 2.1 MG/DL (1.5-2.4); PHOSPHORUS 3.2 MG/DL (2.3-4.5); SODIUM 144 MMOL/L (135-145); TOTAL CARBON DIOXIDE 25.6 MMOL/L (24-32); TOTAL PROTEIN 5.2 G/DL (6.4-8.2); eCRCL 41 ML/MIN; eGFR 49 ML/MIN
[2024-11-26] MEDS ORDERED: BUPIVAcaine 2.5mg/ml inj 50ml vial (contains preservative) ONE (07:34)
[2024-11-26] MEDS ORDERED: meperidine/PF 25mg/ml syringe IV PRN ×3 (08:25)
[2024-11-26] MEDS ORDERED: ondansetron/PF 4mg/2ml inj IV PRN ×2 (08:25→11:50)
[2024-11-26] MEDS ORDERED: ringers solution, lacted 1,000 ML IV SCH (08:25)
[2024-11-26] MEDS ORDERED: morphine 4 MG/ML inj SYRINge IV PRN (08:25)
[2024-11-26] MEDS ORDERED: labetalol 20mg/4ml (5mg/ml) syringe IV PRN (08:25)
[2024-11-26] MEDS ORDERED: morphine 2 MG/ML inj. syringe IV PRN (08:25)
[2024-11-26] MEDS ORDERED: enalaprilat 1.25mg/ml 2ml vial IV PRN (08:25)
[2024-11-26] MEDS ORDERED: proCHLORperazine 10 MG/2 ml inj IV PRN (08:25)
[2024-11-26] MEDS ORDERED: midazolam 1 mg/ML 2ml injection ONE (08:39)
[2024-11-26] MEDS ORDERED: fentaNYL/PF 50MCG/1 ML 2ML syringe ONE (08:39)
--- NOTE | 2024-11-26 08:39 | PROGRESS NOTE ---
Progress Note ID Providers to CC ~ Progress Note Progress Note: DISCUSSED PROCEDURE INCLUDING RISKS/BENEFITS/ALTERNATIVES RIMMA HANCOCK MD November 26, 2024 08:39
[2024-11-26] MEDS ORDERED: LIDOcaine 2% (20mg/ml) 5ml vial ONE (08:51)
[2024-11-26] MEDS ORDERED: propofol inj 20 ML IV ONE (08:51)
[2024-11-26] MEDS ORDERED: rocuronium 10mg/ml inj IV ONE (08:51)
[2024-11-26] MEDS ORDERED: dexamethasone sod phosphate 4mg/ml inj. ONE (08:52)
[2024-11-26] MEDS ORDERED: acetaminophen 1,000mg/100ml IV 100 ML IV ONE (08:54)
[2024-11-26] MEDS ORDERED: ePHEDrine 50MG/ML INJ. ONE (09:03)
[2024-11-26] MEDS ORDERED: ondansetron/PF 4mg/2ml inj ONE (09:29)
[2024-11-26] MEDS ORDERED: sugammadex 200mg/2ml injection IV ONE (09:46)
[2024-11-26] MEDS: morphine 2 MG/ML inj. syringe IV PRN (10:01)
[2024-11-26] MEDS: labetalol 20mg/4ml (5mg/ml) syringe IV PRN (10:07)
[2024-11-26] MEDS: fentaNYL/PF 50MCG/1 ML 2ML syringe IV PRN (10:14)
--- NOTE | 2024-11-26 11:45 | OPERATIVE REPORT ---
Operative Report Providers to CC ~ Date of Procedure: November 26, 2024 Pre-Operative Diagnosis: cholecystitis Post-Operative Diagnosis SAME as PRE-Op Procedure Performed shai ochoa Surgeon: ruiz Car Sealer none Anesthesiologist: Fred Winter Type of Anesthesia: General Findings: distended gb Estimated Blood Loss: min Specimen Removed: gb RIMMA HANCOCK MD November 26, 2024 11:45
[2024-11-26] MEDS ORDERED: naloxone 0.4 mg/ml inj IV PRN (11:50)
--- NOTE | 2024-11-26 17:11 | PROGRESS NOTE ---
Daily Progress Note Providers to CC ~ Antibiotic Timeout Antibiotic Ordered?: Yes Subjective No complaints Objective Vital Signs Date Time Temp Pulse Resp B/P (MAP) Pulse Ox O2 Delivery O2 Flow Rate FiO2 11/26/24 13:30 Nasal Cannula 1.0 11/26/24 13:24 16 11/26/24 12:05 76 11/26/24 11:17 98.2 123/83 (96) 97 Result Diagram: 11/26/24 0451 11/26/24 0451 In bed in nonacute distress HEENT normal oral mucosa no JVD Lungs with decreased bilateral entry no crackles no wheezing Normal rate and rhythm S1-S2 Abdomen is soft nontender bowel sounds are present Extremities No edema plus two pulses Awake and alert Coagulation Studies Laboratory Tests Test 11/26/24 04:51 Prothrombin Time 12.1 SECONDS (9.0-12.0) H INR International Normalized Ratio 1.2 INR Activated Partial Thromboplast Time 38 SECONDS (22-32) H Coagulation Comments Problem\Assessment\Plan Patient presented with acute onset of abdominal pain nausea and vomiting; he is admitted for acute cholecystitis and concern for possible choledocholithiasis; patient is on Zosyn; MRCP shows no evidence of choledocholithiasis; case was discussed with surgery who will evaluate the patient; IV fluids; pain management 11/25 awaiting surgery evaluation 11/26 liver enzymes trending down which makes the possibility of choledocholithiasis more real; on antibiotics; going to OR today Bilateral pleural effusions possibly related to chronic heart failure Heart failure likely chronic; echo with preserved ejection fraction Large hiatal hernia Acute kidney injury on presentation likely related to dehydration; IV fluids History of high blood pressure metoprolol lisinopril Discharge disposition likely home Date of Service: November 26, 2024 Billing Provider: CHAVA BACA MD Common Visit Codes: [id number] INP/OBS CARE(HIGH) CHAVA BACA MD November 26, 2024 17:11
[2024-11-26] MEDS: HYDROmorphone inj. 0.5 MG/0.5 ML DISP.SYRIN IV PRN (18:47)
--- NOTE | 2024-11-27 00:30 | OPERATIVE REPORT ---
DATE OF SURGERY: 11/26/2024 DICTATING PHYSICIAN: Giorgio Lucia MD PREOPERATIVE DIAGNOSIS: Cholecystitis. POSTOPERATIVE DIAGNOSIS: Cholecystitis. PROCEDURE PERFORMED: Robotic cholecystectomy. SURGEON: Giorgio Lucia MD SHIPPING AND RECEIVING MATERIAL HANDLER: None. ANESTHESIA: General/Dr. Winter. DRAINS: Ab drain x 1. INDICATIONS FOR OPERATION: An 89-year-old male with abdominal pain, found to have cholecystitis, taken to surgery for robotic cholecystectomy. INTRAOPERATIVE FINDINGS: Cholecystitis. DESCRIPTION OF PROCEDURE: The patient was placed supine on the operating table. After induction of general anesthesia and placement of endotracheal tube, the abdomen was prepped and draped. A subumbilical incision was then made and Nicolasa port placed using open technique. Pneumoperitoneum was begun by insufflation of CO2. Additional ports were placed in the left lower quadrant, right lateral abdomen. Robot was then brought to the field. Camera port docked. Camera placed, camera targeted. Additional ports were then docked and instruments placed. Abdomen was then explored. Gallbladder fundus was grasped and retracted cephalad. Cystic duct identified, isolated, ligated, clipped and divided the cystic artery. The gallbladder was mobilized off the gallbladder fossa using electrocautery. Hemostasis was found to be adequate. Robotic instruments were removed. Robot was undocked from the field. Gallbladder was placed in Endobag using laparoscope. Abdomen was copiously irrigated with large amount of antibiotic-containing solution. A #19 Ab drain was placed through a port incision, directed to the gallbladder fossa. The remaining ports were removed under laparoscopic vision with no active bleeding. Final port and camera were withdrawn the gallbladder. Wounds were then closed in layers. Skin was closed with clips. Dressing was applied. The patient was transferred to recovery in stable condition. Giorgio Lucia MD TID: [id number] RECEIPT: [id number] ELIZABETH/FREDY/ZULEMA
[2024-11-27 02:00] VITALS: BP 151/93; PULSE 69; RESP 22; TEMP 97.9; O2SAT 95
[2024-11-27] MEDS: HYDROcodone/acetaminophen 10/325mg tab PO PRN (04:56)
--- NOTE | 2024-11-27 05:09 | CONSULTATION ---
DATE OF CONSULTATION: 11/25/2024 DICTATING PHYSICIAN: Giorgio Lucia MD REASON FOR CONSULTATION: Evaluation of abdominal pain. HISTORY OF PRESENT ILLNESS: The patient is an 89-year-old male, admitted on 11/23/2024 with complaints of abdominal pain after a fatty meal. Pain was somewhat epigastric in nature. Workup revealed cholecystitis. Surgical evaluation now requested. On further questioning, the patient's pain is much improved at the present time. He does have a history of a hiatal hernia, which has been present for some time, which he has managed conservatively. PAST MEDICAL HISTORY: Significant for arrhythmias, hypertension, hyperlipidemia, nephrolithiasis and lung cancer, status post chemo. PAST SURGICAL HISTORY: Significant for umbilical hernia repair and coronary artery stenting. HOME MEDICATIONS: See chart. ALLERGIES: None. REVIEW OF SYSTEMS: See H and P. PHYSICAL EXAMINATION: GENERAL: Well-nourished male, in minimal distress. VITAL SIGNS: Unremarkable. HEART: Regular rate and rhythm. LUNGS: Diminished breath sounds, left hemithorax. ABDOMEN: No tenderness at the present time. EXTREMITIES: Unremarkable. NEUROLOGIC: Nonfocal. LABORATORY DATA: Labs included WBC of on admission, hematocrit of 37, platelet count is 137. Chemistries include total bilirubin of 2.3 on admission. LFTs are improving. IMAGING STUDIES: MRCP reveals no evidence of common duct stone. No evidence of cholecystitis. IMPRESSION: * Cholecystitis. * History of hiatal hernia. * History of coronary artery disease, status post stent placement. * Cardiac dysrhythmia. * History of hyperlipidemia. * Hypertension. RECOMMENDATIONS: Robotic cholecystectomy. Giorgio Lucia MD TID: [id number] RECEIPT: [id number] ELIZABETH/REBEKAH/ANTHONY
[2024-11-27 06:00] VITALS: BP 125/85; PULSE 104; RESP 16; TEMP 98.1; O2SAT 94
[2024-11-27 06:34] LABS: BASOPHILS % (AUTO) 0.1 % (0-1); EOSINOPHILS % (AUTO) 0.1 % (0-6); HEMATOCRIT 40.5 % (42.0-52.0); HEMOGLOBIN 12.8 g/dl (14.0-17.9); LYMPHOCYTES # (AUTO) 0.3 X10'3 (1.1-4.8); LYMPHOCYTES % (AUTO) 2.4 % (21-51); MEAN CORPUSCULAR HEMOGLOBIN 29.9 PG (27.0-31.0); MEAN CORPUSCULAR HGB CONC 31.7 g/dL (33.0-36.5); MEAN CORPUSCULAR VOLUME 94.2 FL (78-98); MEAN PLATELET VOLUME 8.5 FL (7.4-10.4); MONOCYTES # (AUTO) 0.7 X10'3 (0-0.9); MONOCYTES % (AUTO) 6.5 % (2-12); NEUTROPHILS # (AUTO) 10.2 X10'3 (1.8-7.7); NEUTROPHILS % (AUTO) 90.9 % (42-75); PLATELET COUNT 184 X10'3 (140-440); WHITE BLOOD COUNT 11.2 X10'3 (4.5-11.0)
[2024-11-27 06:45] LABS: INR 1.2 INR; PROTHROMBIN TIME 11.9 SECONDS (9.0-12.0)
[2024-11-27 06:58] LABS: ALANINE AMINOTRANSFERASE 136 U/L (12-78); ALBUMIN 2.6 G/DL (3.4-5.0); ALBUMIN/GLOBULIN RATIO 1.1 (1.1-1.5); ALKALINE PHOSPHATASE 208 IU/L (46-116); ANION GAP 11 (8-16); ASPARTATE AMINO TRANSFERASE 54 U/L (10-37); BILIRUBIN,TOTAL 1.4 MG/DL (0.1-1.0); BLOOD UREA NITROGEN 31 MG/DL (7-18); BUN/CREATININE RATIO 18.8 (10.0-20.0); CALCIUM 8.6 MG/DL (8.5-10.1); CHLORIDE 108 MMOL/L (99-107); CREATININE 1.65 MG/DL (0.60-1.10); GLUCOSE 192 MG/DL (70-104); PHOSPHORUS 4.1 MG/DL (2.3-4.5); POTASSIUM 4.9 MMOL/L (3.5-5.1); SODIUM 141 MMOL/L (135-145); TOTAL CARBON DIOXIDE 21.7 MMOL/L (24-32); eCRCL 34 ML/MIN; eGFR 40 ML/MIN
[2024-11-27 08:00] VITALS: RESP 16; O2SAT 94
[2024-11-27 10:00] VITALS: BP 133/79; PULSE 80; RESP 20; TEMP 97.1; O2SAT 95
[2024-11-27] MEDS ORDERED: HYDR-3965 PO (10:47)
[2024-11-27] MEDS ORDERED: FURO40TA4 PO (10:47)
[2024-11-27 15:43] VITALS: RESP 18
--- NOTE | 2024-11-28 15:42 | DISCHARGE SUMMARY ---
Discharge Summary Providers to CC ~ Discharge Summary Admission Diagnosis: cholecystitis Hospital Course DATE OF ADMISSION: November 23, 2024 DATE OF DISCHARGE: November 27, 2024 Discharge Diagnosis\Comment: Acute cholecystitis and possible choledocholithiasis status post robotic cholecystectomy with Dr. Canela on November 26 Bilateral pleural effusions likely related to chronic heart failure Chronic heart failure who presented ejection fraction Large hiatal hernia Acute kidney injury on presentation likely related to dehydration History of high blood pressure Severe pulmonary hypertension Operations\Procedures: Laparoscopic cholecystectomy Consultants: Dr. Prado Complications: None Condition on DC: Stable Discharge Summary: This is an 89 years old male who presents to the hospital with acute onset of right upper quadrant pain associated with nausea and vomiting; CT of the abdomen and pelvis showed constipation large esophageal hiatal hernia right neph rolithiasis without hydronephrosis inguinal hernias bilaterally and colonic diverticulosis; abdominal ultrasound so abnormal thickening of the gallbladder wall with pericholecystic edema concerning for acute cholecystitis; on presentation patient's bilirubin was 3.5 with an AST of 542 ALT of 491 and an alk-phos of 315; orders reason an MRCP was ordered Which showed hydropic distended gallbladder with pericholecystic edema large hiatal hernia mesenteric edema aneurysmal dilatation of the abdominal aorta bila teral pleural effusions; CT of the chest showed small bilateral effusions 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 Prado; after surgery his condition improved significantly had a couple of bowel movements and his pain was controlled he was able to ambulate so tolerating his diet well so patient felt comfortable going home so patient in stable condition was discharged home to follow up with Dr. Canela in his office next week Patient received on discharge prescription for Lasix 40 mg p.o. daily and [place] [address] tablet p.o. q.6 hours p.r.n. pain; patient to resume his Eliquis 5 mg p.o. b.i.d. Lipitor 10 mg p.o. daily lisinopril 20 mg p.o. b.i.d. metoprolol 100 mg p.o. daily omeprazole 20 mg p.o. daily On the day of discharge sodium 141 potassium 4.9 CO2 22 BUN 31 and creatinine 1.6 total bilirubin 1.4 trending down AST 54 ALT 136 alk-phos 208 all of them trending down; white count 11.2 H and H 12.8/40 with 184 platelets In the physical examination temperature 97.1 heart rate 80 breathing 18 blood pressure 133/79 95% on room air HEENT normal oral mucosa no JVD lungs with normal bilateral entry no crackles no wheezing heart normal rate and rhythm S1- S2 no murmurs abdomen is soft nontender bowel sounds present has a GLORIA in place extremities no edema plus two pulses he is awake and alert *Problems/Diagnosis: (1) Cholecystitis Total Time Spent on D/C: > 30 Minutes Date of Service: November 27, 2024 Billing Provider: CHAVA BACA MD Common Visit Codes: [id number] DISCH DAY >30min CHAVA BACA MD November 28, 2024 15:38
== END 2024-11-27 17:23 | disposition home or self-care (01) | DRG 418 ==
LOC: ER 01:51 → ED HOLD 05:15 → EDBEDREQ 10:23 → ORTHO 4S 11:25 → SUR 3N 11-25 18:02 → PACU 11-26 09:36 → SUR 3N 11-26 11:49
PROVIDERS: ADMIT Internal Medicine Critical Care Medicine; ATTEND Internal Medicine
PROC: 8E0W4CZ Robotic Assisted Procedure of Trunk Region, Percutaneous Endoscopic Approach (ICD-10-PCS; 2024-11-26)
PROC: 0FT44ZZ Resection of Gallbladder, Percutaneous Endoscopic Approach (ICD-10-PCS; principal; 2024-11-26 08:30)
DX: K81.0 Acute cholecystitis (principal); N17.9 Acute kidney failure, unspecified; E78.5 Hyperlipidemia, unspecified; I25.10 Atherosclerotic heart disease of native coronary artery without angina pectoris; I50.9 Heart failure, unspecified; I27.20 Pulmonary hypertension, unspecified; I11.0 Hypertensive heart disease with heart failure; E86.0 Dehydration; K59.00 Constipation, unspecified; Z79.899 Other long term (current) drug therapy; Z79.01 Long term (current) use of anticoagulants; Z85.118 Personal history of other malignant neoplasm of bronchus and lung; Z87.442 Personal history of urinary calculi; Z92.21 Personal history of antineoplastic chemotherapy; Z95.5 Presence of coronary angioplasty implant and graft
CPT/HCPCS: 36415; 71250; 74176; 74181; 76700; 80053; 80061; 81001; 82948; 83036; 83690; 83735; 83880; 84100; 85025; 85610; 85730; 87040; 87081; 93005; 93306; A4215; A4615; A4618; A6213; A6258; A6402; A6449; A7000; G0378; J0131; J0696; J1100; J1171; J1650; J2003; J2250; J2270; J2405; J2543; J2704; J3010; J3490; J7030; J7120